=== PATIENT | male | born 1955 | race Caucasian/White ===

== ENCOUNTER 2023-12-09 11:17 | Emergency (ER) | payer MEDICARE, SELFPAY ==
[2023-12-09 11:20] VITALS: BP 214/92
[2023-12-09 12:51] VITALS: BP 219/87
[2023-12-09 13:00] VITALS: BP 211/72
[2023-12-09 13:01] VITALS: BMI 23.3
[2023-12-09 13:18] LABS: % Basophils 1.5 % (0-2); % Eosinophils 1.1 % (0-6); % Immature Granulocytes 0.2 % (0-0.5); % Lymphocytes 16.9 % (20.5-51.1); % Monocytes 7.8 % (1.7-9.3); % Neutrophils 72.5 % (42.2-75.2); Absolute Basophils 0.1 10^3/uL (0-0.2); Absolute Eosinophils 0.1 10^3/uL (0-0.7); Absolute Lymphocytes 0.9 10^3/uL (1.2-3.4); Absolute Monocytes 0.4 10^3/uL (0.1-0.6); Absolute Neutrophils 3.8 10^3/uL (1.4-6.5); Hematocrit 35.2 % (39.0-52.0); Hemoglobin 12.3 g/dL (13.0-18.0); Mean Corp Hgb Conc. 34.9 g/dL (33.0-37.0); Mean Corpuscular Hgb 30.6 pg (27.0-31.0); Mean Corpuscular Volume 87.6 fL (80.0-94.0); Mean Platelet Volume 9.9 fL (7.4-10.4); Nucleated Red Blood Cells % 0 % (-); Platelet Count 206 10^3/uL (130-400); Red Blood Cell Count 4.02 10^6/uL (4.70-6.10); White Blood Cell Count 5.3 10^3/uL (4.8-10.8)
--- NOTE | 2023-12-09 13:27 | ED.GENMED ---
History of Present Illness
General
Chief Complaint: Blood Pressure Problem
Source: patient
Exam Limitations: none
Time Seen by Provider: 12/09/23 12:43
Nursing documentation reviewed up to this point in time: agreed with
Travel History
Have you had any contact with someone who has COVID-19?: No
Do you have any symptoms of coronavirus? Fever > 100 degrees, chills, cough, shortness of breath, sore throat, loss of taste or smell, muscle aches, or headache?: No
History of Present Illness
History of Present Illness:
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
here with elevated BP from PCP office
pt says that last month he had checked his bp which he does on occasion at home and it was 140s/90s
he saw his pcp just before [facility] and it was 130/80 in the office. the PCP didn't want to start meds yet
told him to watch salt and exercise which he has been doing
occasionally he has had readings 150/s80s but yesterday he checkd and it was 190/80. pt made an appt with PCP who sent him in today for bp 200/100
pt feels absolutely no symptoms
no fever,chills, headache, blurry vision, cp, sob, weakness, fatigue, paresthesias, vomiting, urinary problems.
Past History
Past History
ED Past Medical History: Other (graves disease)
Social History
Tobacco: Non-smoker
Alcohol: None
Drug: None
Personal:
Living: with family
Review of Systems
Review of Systems
Allergies reviewed?: Yes
All Other Systems: Not applicable
Phy Exam
Physical Exam
Physical Exam:
GENERAL: Alert , in no apparent distress
EYE: pupils equal and reactive
NECK: Supple
ENT: o/p clr, mmm.
CARDIAC: Regular rate and rhythm .
LUNGS: Clear breath sounds bilaterally, no acute respiratory distress, no wheezes/rales/rhonchi
ABDOMEN: Soft, without focal tenderness, no r/g, no cvat, normal bowel sounds
NEUROLOGICAL: Alert and oriented, no focal neuro deficits
SKIN: Warm and dry, skin intact.
MUSCULOSKELETAL: No edema, well perfused. neg celestine's sign
PSYCH: Normal and appropriate interaction.
Course
Orders/Labs/Results
Orders:
Orders
12/09/23 12:45
Electrocardiogram (*1) Urgent
Reason for Study: Hypertension, Benign
EKG- Treatment ONCE
12/09/23 13:04
Complete Blood Count/With Diff Urgent
Comprehensive Metabolic Panel Urgent
Free T4 Urgent
TSH Reflex To Free T4 Urgent
Troponin I Urgent
12/09/23 14:09
Losartan [Cozaar] 50 mg PO NOW STA
Abnormal Lab Results
12/09/23
13:04
RBC 4.02 L 10^6/uL
(4.70-6.10)
Hgb 12.3 L g/dL
(13.0-18.0)
Hct 35.2 L %
(39.0-52.0)
Absolute Lymphs (auto) 0.9 L 10^3/uL
(1.2-3.4)
Lymphocytes % 16.9 L %
(20.5-51.1)
Carbon Dioxide 31 H mmol/L
(22-30)
Glucose 108 H mg/dl
(70-99)
TSH (Reflex) 0.30 L uIU/ml
(0.47-4.68)
12/09/23 13:04
12/09/23 13:04
Vital Signs
Initial and Last Documented VS:
Initial Vital Signs
Temp Pulse Resp BP Pulse Ox
98.0 F 77 18 214/92 99
12/09/23 11:20 12/09/23 11:20 12/09/23 11:20 12/09/23 11:20 12/09/23 11:20
Last Documented Vital Signs
Temp Pulse Resp BP Pulse Ox
98.0 F 58 15 169/64 98
12/09/23 11:20 12/09/23 15:30 12/09/23 15:30 12/09/23 15:00 12/09/23 15:30
MDM/Problems Addressed
Differential Diagnosis Includes:
hypertensive urgency, asymptomatic htn
MDM/Problems Addressed:
68 y/o M
no h/o htn
here with elevated bp
no symptoms
has had some ongoing sporatic checks at home that have been a little high
well appearing
200/90 here
hr 80s
normal exam
renal function normal, no sign of end organ damage
12/09/2023 1426 PM
bp 176/74 without treatment
d/w ed attending dr. larry
recommends oral losaratan 50 mg dialy
f/u with pcp
*Critical Care Note
Total Time (30-74mins, 75-104mins- exclusive of procedures): Not Applicable
ED Attending Note
-
Portions of this chart may have been created with voice recognition software.� Occasional wrong word or��sound alike� substitutions may have occurred due to the inherent limitations of voice recognition software.
Discharge Plan
Departure
Patient Disposition: Home (Routine Discharge)
Date of Disposition: 12/09/23
Time of Disposition: 15:50
Patient with high blood pressure during this ER visit?: Yes
Condition: Fair
Covid-19: Not Applicable
Discharge Problem:
Hypertension
Instructions: High Blood Pressure (DC)
Prescriptions:
New
losartan 50 mg tablet
50 mg PO DAILY Qty: 20 0RF
Referrals:
Jose Smith MD [Family Provider] - Follow up in 2-3 days
Activity Restrictions/Additional Instructions:
YOUR BLOOD PRESSURE WAS HIGH
START LOSARTAN 50 MG ONCE A DAY
FOLLOW UP WITH YOUR DOCTOR NEXT WEEK FOR A BP CHECK
YOU CAN CHEKC IT ONCE A DAY AND KEEP A LOG
RETURN FOR: SYMPTOMS LIKE CHESTP AIN, HEADACHE, BLURRY VISION OR ANY CONCERNS
OTHERWISE FOLLOW UP WITH YOUR DOCTOR CLOSELY.
Interventions
Interventions:
*Risk Screen - Suicide Last Done: 12/09/23 13:06
*General Assessment Last Done: 12/09/23 13:06
*Neglect/Abuse Screening Last Done: 12/09/23 13:06
*ED COVID-19 Vaccine History Last Done: 12/09/23 13:06
*Nursing Disposition Last Done: 12/09/23 16:04
ED- Cardiac Assessment Last Done: 12/09/23 15:42
ED- Neurological Assessment Last Done: 12/09/23 15:42
ED- Pulmonary Assessment Last Done: 12/09/23 15:42
Discharge Date and Time
Discharge Date/Time: 12/09/23 16:05
[2023-12-09 13:29] LABS: ALT (SGPT) 23 U/L (0-50); AST (SGOT) 29 U/L (17-59); Albumin 4.2 g/dl (3.5-5.0); Alkaline Phosphatase 52 U/L (38-126); Blood Urea Nitrogen 12 mg/dl (9-20); Calcium 8.8 mg/dl (8.4-10.2); Carbon Dioxide 31 mmol/L (22-30); Chloride 105 mmol/L (98-107); Estimated Creatinine Clearance 77 ml/min; Glucose 108 mg/dl (70-99); Potassium 3.6 mmol/L (3.5-5.1); Sodium 140 mmol/L (135-145); Total Bilirubin 0.7 mg/dl (0.2-1.3); Total Protein 6.6 g/dl (6.3-8.2); eGFR > 60.00
[2023-12-09 13:40] LABS: Troponin I < 0.012 ng/ml
[2023-12-09 14:00] VITALS: BP 179/75
[2023-12-09 15:00] VITALS: BP 169/64
[2023-12-09] MEDS: COZAAR 50 MG PO (15:05)
[2023-12-09 19:32] LABS: Free T4 1.37 ng/dl (0.78-2.19)
== END 2023-12-09 16:05 | disposition home or self-care (01) ==
LOC: EMR 11:17
PROVIDERS: Physician Assistant; EMERGENCY PHYSICIAN Emergency Medicine; FAMILY PHYSICIAN Family Medicine
DX: I10 Essential (primary) hypertension (principal); E05.00 Thyrotoxicosis with diffuse goiter without thyrotoxic crisis or storm; Z79.890 Hormone replacement therapy
CPT/HCPCS: 99283; 80053; 84439; 84443; 84484; 85025; 93005

== ENCOUNTER 2023-12-10 15:43 | Emergency (ER) | payer MEDICARE, SELFPAY ==
[2023-12-10] VITALS (12 sets, daily range): BP systolic 151–218; BP diastolic 60–110; BMI 22.5
--- NOTE | 2023-12-10 18:39 | ED.GENMED ---
History of Present Illness
General
Chief Complaint: Blood Pressure Problem
Source: patient
Exam Limitations: none
Time Seen by Provider: 12/10/23 18:06
Travel History
Have you had any contact with someone who has COVID-19?: No
Do you have any symptoms of coronavirus? Fever > 100 degrees, chills, cough, shortness of breath, sore throat, loss of taste or smell, muscle aches, or headache?: No
History of Present Illness
History of Present Illness:
This is a 68 year old male that comes in with c/o hypertension. States that he was here yesterday as his BP was over 200 in the PCP office. States that he was prescribed Losartan 50mg and his BP systolic came down to 169. States that he took the
Losartan at 1:30pm today and he felt that his BP continued to go up. States that it was 225/74. States that he felt a little shaky today and his states that he got Agitated and started to pack a bag to come to the hospital. Denies any fever,
chills, chest pain, SOB, abd pain, nausea, vomiting, diarrhea, headache, dizziness, urinary burning.
Past History
Past History
ED Past Medical History: Other (graves disease)
ED Past Surgical History: None
Social History
Tobacco: Former smoker
Alcohol: None
Drug: None
Personal:
Living: with family
Review of Systems
Review of Systems
All Other Systems: ROS reviewed and negative except as documented in HPI and ROS
Constitutional: Reports other (felt a little shaky); Denies fever or chills
EENT: Reports no symptoms
Respiratory: Reports no symptoms; Denies cough or trouble breathing
Cardiac: Reports no symptoms; Denies chest pain
ABD/GI: Reports no symptoms; Denies abdominal pain, nausea, vomiting or diarrhea
: Reports no symptoms; Denies dysuria, frequency or urgency
Musculoskeletal: Reports no symptoms
Skin: Reports no symptoms
Neurological: Reports other ( states that he was agitated); Denies dizzy or headache
Psychiatric: Reports no symptoms
Phy Exam
General Physical Exam
General Presentation: no apparent distress
General age: appears stated age
General Skin: warm and dry
General Habitus: elderly
General Mental: alert
General Hydration: appears well hydrated
ENT Exam
ENT Exam: TM's normal, pharynx normal and neck supple
Eye Exam
Eye Exam: EOMI
Cardiovascular Exam
Cardiovascular Exam: regular rate/rhythm, no edema, no murmur and normal peripheral pulses
Pulmonary Exam
Pulmonary Exam: lungs clear, no respiratory distress, no rales, chest non tender, no crackles, no rhonchi, no wheezing and no cough
Gastrointestinal Exam
Gastrointestinal Exam: normal bowel sounds, non tender, soft, no organomegaly, no pulsatile mass and non distended
Musculoskeletal Exam
Musculoskeletal Exam: full ROM and no edema
Skin Exam
Skin Exam: normal color, warm/dry, no rash and no petechia
Psychiatric Exam
Psychiatric Exam: normal mood/affect
Course
Orders/Labs/Results
Orders:
Orders
12/10/23 18:39
HydrALAZINE [Apresoline] 5 mg IV NOW STA
12/10/23 18:40
Electrocardiogram (*1) Urgent
Reason for Study: Hypertension, Benign
EKG- Treatment ONCE
12/10/23 19:43
Amlodipine [Norvasc] 5 mg PO NOW STA
12/10/23 19:59
Lorazepam [Ativan] 1 mg PO NOW STA
Vital Signs
Initial and Last Documented VS:
Initial Vital Signs
Temp Pulse Resp BP Pulse Ox
98.1 F 80 20 204/104 97
12/10/23 15:47 12/10/23 15:47 12/10/23 15:47 12/10/23 15:47 12/10/23 15:47
Last Documented Vital Signs
Temp Pulse Resp BP Pulse Ox
98.1 F 74 15 160/61 94
12/10/23 15:47 12/10/23 21:30 12/10/23 21:30 12/10/23 21:30 12/10/23 21:15
MDM/Problems Addressed
Differential Diagnosis Includes:
Hypertension,
MDM/Problems Addressed:
This is a 68 year old male that comes in with c/o Hypertension. Patient was seen her yesterday and started on Losartan 50mg. Patient states that he felt that his BP as going up instead of down.
Will Medicated for Hypertension and get ECG. Monitor his BP
Back into see patient. Patient states that he had gotten up to go to the BR after the nurse put the IV in and she did not tell him she was giving him something for his BP. States that he became dizzy and was shaky when he got back into bed and his
heart rate jumped. Patient is very anxious. Will give Ativan 1mg po and hold off on the Amlodipine until patient relaxes. Encouraged patient to stop watching the monitor.
Chronic conditions affecting care: HTN
Acute Exacerbation and/or Progression of Chronic Illness: HTN
*Pulse Oximetry
Patient hypoxic: no
*EKG
Interpreted by ED Provider?: Yes
Heart Rate: 81
Rate: normal
Rhythm: sinus
[place]: normal axis
Interval: normal interval
QRS Pattern: normal QRS
Ischemia: no ischemia
*[employer] Interpretation
Rate: normal
Heart Rate: 68
Rhythm: sinus
*Critical Care Note
Total Time (30-74mins, 75-104mins- exclusive of procedures): Not Applicable
ED Attending Note
-
Portions of this chart may have been created with voice recognition software.� Occasional wrong word or��sound alike� substitutions may have occurred due to the inherent limitations of voice recognition software.
Discharge Plan
Departure
Patient Disposition: Home (Routine Discharge)
Date of Disposition: 12/10/23
Time of Disposition: 22:05
Patient with high blood pressure during this ER visit?: Yes
Condition: Good
Covid-19: Not Applicable
Discharge Problem:
Hypertension, Anxiety
Instructions: High Blood Pressure (DC), Anxiety, Adult (DC), BLOOD PRESSURE
Prescriptions:
New
amlodipine [Norvasc] 5 mg tablet
5 mg PO DAILY Qty: 30 0RF
No Action
losartan 50 mg tablet
50 mg PO DAILY Qty: 20 0RF
Referrals:
Jose Smith MD [Family Provider] - Follow up in 2-3 days
Activity Restrictions/Additional Instructions:
As discussed, your BP has come down nicely with the second medication. A prescription has been sent to your Pharmacy. Please continue with the Losartan and then add the Norvasc. You may take one in the morning and one later in the day to help keep
the BP at a more even level. Please follow up with the family doctor in the in the next 2-3 days for recheck of your BP. Please discuss with him your feelings of anxiety. IF YOU HAVE ANY OTHER CONCERNS PLEASE RETURN TO THE EMERGENCY ROOM.
Interventions
Interventions:
*Risk Screen - Suicide Last Done: 12/10/23 17:59
*General Assessment Last Done: 12/10/23 17:59
*Neglect/Abuse Screening Last Done: 12/10/23 17:59
ED- Fall Risk Assessment Last Done: 12/10/23 17:59
*ED COVID-19 Vaccine History Last Done: 12/10/23 17:59
ED- Cardiac Assessment Last Done: 12/10/23 17:59
ED- Neurological Assessment Last Done: 12/10/23 17:59
ED- Pulmonary Assessment Last Done: 12/10/23 17:59
[2023-12-10] MEDS: APRESOLINE 5 MG IV (19:03)
[2023-12-10] MEDS: ATIVAN 1 MG PO (20:13)
[2023-12-10] MEDS: NORVASC 5 MG PO (21:02)
== END 2023-12-10 22:21 | disposition home or self-care (01) ==
LOC: EMR 15:43
PROVIDERS: EMERGENCY PHYSICIAN Emergency Medicine; FAMILY PHYSICIAN Family Medicine
DX: F41.9 Anxiety disorder, unspecified (principal); I10 Essential (primary) hypertension; Z87.891 Personal history of nicotine dependence
CPT/HCPCS: 99284; 96374; 93005

== ENCOUNTER → 2023-12-31 12:01 | Outpatient (REF) | payer MEDICARE, SELFPAY ==
[2023-12-31 16:23] LABS: Free T4 1.31 ng/dl (0.78-2.19)
[2023-12-31 16:37] LABS: TSH 0.54 uIU/ml (0.47-4.68)
[2024-01-02 21:45] LABS: Thyroid Stim. Immunoglobulin 0.64 IU/L (<=0.54)
== END ==
LOC: HWLAB 12:01
PROVIDERS: ATTENDING PHYSICIAN Internal Medicine; FAMILY PHYSICIAN Family Medicine
DX: E89.0 Postprocedural hypothyroidism (principal)
CPT/HCPCS: 36415; 84439; 84443; 84445

== ENCOUNTER → 2024-03-04 08:51 | Outpatient (REF) | payer MEDICARE, SELFPAY | LOC: RAD 08:51 | PROVIDERS: ATTENDING PHYSICIAN Specialist; FAMILY PHYSICIAN Internal Medicine | DX: I10 Essential (primary) hypertension (principal) | CPT/HCPCS: 93975 ==

== ENCOUNTER → 2024-03-05 12:40 | Outpatient (REF) | payer MEDICARE, SELFPAY ==
[2024-03-08 16:59] LABS: Aldosterone, Serum 10.4 ng/dL; Aldosterone/Renin Activ Ratio 1.3 ratio (<=25.0)
== END ==
LOC: HWLAB 12:40
PROVIDERS: ATTENDING PHYSICIAN Specialist; FAMILY PHYSICIAN Internal Medicine
DX: I10 Essential (primary) hypertension (principal)
CPT/HCPCS: 36415; 82088; 82384; 83835; 84244

== ENCOUNTER → 2024-03-09 09:37 | Outpatient (REF) | payer MEDICARE, SELFPAY ==
[2024-03-09 13:22] LABS: Free T4 1.05 ng/dl (0.78-2.19)
[2024-03-09 13:36] LABS: TSH 1.74 uIU/ml (0.47-4.68)
[2024-03-11 04:50] LABS: Thyroid Stim. Immunoglobulin 0.63 IU/L (<=0.54)
== END ==
LOC: HWLAB 09:37
PROVIDERS: ATTENDING PHYSICIAN Internal Medicine; FAMILY PHYSICIAN Internal Medicine
DX: E89.0 Postprocedural hypothyroidism (principal)
CPT/HCPCS: 36415; 84439; 84443; 84445

== ENCOUNTER → 2024-10-19 12:35 | Outpatient (REF) | payer MEDICARE, SELFPAY ==
[2024-10-19 16:08] LABS: % Eosinophils 5.7 % (0-6); % Immature Granulocytes 1.2 % (0-0.5); % Lymphocytes 26.3 % (20.5-51.1); % Monocytes 9.9 % (1.7-9.3); % Neutrophils 54.9 % (42.2-75.2); Absolute Basophils 0.1 10^3/uL (0-0.2); Absolute Eosinophils 0.3 10^3/uL (0-0.7); Absolute Immature Granulocytes 0.1 10^3/uL (0-0.05); Absolute Lymphocytes 1.6 10^3/uL (1.2-3.4); Absolute Monocytes 0.6 10^3/uL (0.1-0.6); Absolute Neutrophils 3.3 10^3/uL (1.4-6.5); Hematocrit 34.3 % (39.0-52.0); Hemoglobin 11.3 g/dL (13.0-18.0); Mean Corp Hgb Conc. 32.9 g/dL (33.0-37.0); Mean Platelet Volume 9.4 fL (7.4-10.4); Nucleated Red Blood Cells % 0 % (-); Platelet Count 248 10^3/uL (130-400); Red Blood Cell Count 3.77 10^6/uL (4.70-6.10); Red Cell Dist. Width 14.3 % (11.5-14.5); White Blood Cell Count 5.9 10^3/uL (4.8-10.8)
[2024-10-19 16:13] LABS: ALT (SGPT) 24 U/L (0-50); AST (SGOT) 35 U/L (17-59); Albumin 4.4 g/dl (3.5-5.0); Alkaline Phosphatase 41 U/L (38-126); Blood Urea Nitrogen 19 mg/dl (9-20); Calcium 9.6 mg/dl (8.4-10.2); Carbon Dioxide 32 mmol/L (22-30); Chloride 101 mmol/L (98-107); Glucose 102 mg/dl (70-99); HDL Cholesterol 63 mg/dl; LDL Cholesterol, Calculated 182 mg/dl; Potassium 4.5 mmol/L (3.5-5.1); Sodium 140 mmol/L (135-145); Total Bilirubin 0.5 mg/dl (0.2-1.3); Total Cholesterol 261 mg/dl (50-199); Total Protein 6.8 g/dl (6.3-8.2); Triglyceride 83 mg/dl (10-149); Very Low Density Lipoprotein 16 mg/dl (0-30)
[2024-10-19 16:43] LABS: PSA, Total - Screen 2.64 ng/ml (0.0-4.0); TSH 1.73 uIU/ml (0.47-4.68)
[2024-10-19 17:02] LABS: Vitamin B12 764 pg/ml (239-931)
== END ==
LOC: HWLAB 12:35
PROVIDERS: ATTENDING PHYSICIAN Internal Medicine
DX: E03.9 Hypothyroidism, unspecified (principal); I10 Essential (primary) hypertension; E53.8 Deficiency of other specified B group vitamins; Z12.5 Encounter for screening for malignant neoplasm of prostate; E78.5 Hyperlipidemia, unspecified
CPT/HCPCS: 36415; 80053; 80061; 82607; 84443; 85025; G0103

== ENCOUNTER → 2025-02-03 13:14 | Outpatient (REF) | payer MEDICARE, SELFPAY ==
[2025-02-03 17:01] LABS: HDL Cholesterol 60 mg/dl; LDL Cholesterol, Calculated 123 mg/dl; Total Cholesterol 197 mg/dl (50-199); Triglyceride 70 mg/dl (10-149); Very Low Density Lipoprotein 14 mg/dl (0-30)
== END ==
LOC: HWLAB 13:14
PROVIDERS: ATTENDING PHYSICIAN Internal Medicine
DX: E78.2 Mixed hyperlipidemia (principal)
CPT/HCPCS: 36415; 80061

== ENCOUNTER → 2025-04-12 11:50 | Outpatient (REF) | payer MEDICARE, SELFPAY ==
[2025-04-12 15:50] LABS: Free T4 1.37 ng/dl (0.78-2.19)
[2025-04-15 03:14] LABS: Thyroid Stim. Immunoglobulin 0.61 IU/L (<=0.54)
== END ==
LOC: HWLAB 11:50
PROVIDERS: ATTENDING PHYSICIAN Internal Medicine; FAMILY PHYSICIAN Internal Medicine
DX: E89.0 Postprocedural hypothyroidism (principal)
CPT/HCPCS: 36415; 84439; 84443; 84445